=== PATIENT | male | born 1985 | race Caucasian/White ===

== ENCOUNTER 2018-06-29 08:28 | Emergency (ER) | payer OTHER ==
[~2018-06-29] VITALS: Ht 167.6 cm; Wt 90.4 kg
[2018-06-29 08:41] VITALS: BP 154/92
[2018-06-29] MEDS ORDERED: ALBUTEROL SULFATE 2.5 MG/3 ML NPPB ONE (09:00)
[2018-06-29] MEDS ORDERED: ALBUTEROL SULFATE 2.5 MG/3 ML ONE (09:38)
== END 2018-06-29 09:54 | disposition home or self-care (01) ==
LOC: ED 09:25
DX: J00 Acute nasopharyngitis [common cold] (principal); J04.0 Acute laryngitis
CPT/HCPCS: 71046; 94640; 99283; J7512; J7613